=== PATIENT | female | born 1960 | race Caucasian/White ===

== ENCOUNTER 2025-10-21 10:00 | Outpatient (AMB) | payer MEDICARE, OTHER, SELFPAY ==
--- NOTE | 2025-10-21 10:31 | ORTHONT_ITS ---
Vital signs 10/21/25 10:38 10/21/25 10:46 Height 1.68 m 1.68 m Height Method Stated Stated Weight 73.17 kg 73.17 kg Weight Measurement Method Standing Scale Standing Scale BMI 26.0 25.9 BP 131/93 H 131/93 H Blood Pressure Source Automatic Cuff Automatic Cuff Blood Pressure Location Left Upper Arm Right Upper Arm Position Sitting Sitting Respiration 18 18 Pulse 67 67 Pulse Source Monitor Monitor Temp 97.3 F 97.3 F Temp Source Temporal Artery Scan Temporal Artery Scan Pulse Oximetry (%) 96 96 Oxygen Delivery Method Room Air Room Air Med/Allergies Allergies & Medications Allergies codeine Allergy (Severe, Verified 10/21/25 10:47) NAUSEA/VOMITING / HIVES hydromorphone Allergy (Severe, Verified 10/21/25 10:47) ANAPHYLAXIS morphine Allergy (Severe, Verified 10/21/25 10:47) Anaphylaxis Penicillins Allergy (Severe, Verified 10/21/25 10:47) Hives Medication Reconciliation diltiazem HCl 120 mg capsule,extended release 24 hr (Cartia XT) 1 cap PO BID 0 07/13/22 [History Confirmed 10/21/25] nitrofurantoin monohydrate/macrocrystals 100 mg capsule (Macrobid) 100 mg PO QDAY 09/19/23 [History Confirmed 10/21/25] vibegron 75 mg tablet (Gemtesa) 75 mg PO QDAY 09/19/23 [History Confirmed 10/21/25] Exam Exam Patient is in no acute distress and is cooperative with the examination today. Breathing is nonlabored. In no respiratory distress. Bilateral extremities were evaluated and demonstrates sensation intact to light touch. Patient has pitting edema bilaterally Bilateral hips were examined. The patient has no pain with log roll of the hips. Internal rotation to 30 degrees and external rotation to 30 degrees is painless. Negative FADIR. The left knee was examined. The left knee is in neutral alignment. Range of motion from 0-120 degrees. Knee is stable to varus and valgus as well as AP translation with <5mm. Patient has a negative McMurrays. There is no pain with patellofemoral compression and no crepitus noted. The knee is nontender to palpation diffusely. The right knee was also examined. The right knee is in neutral alignment. Range of motion from 0-120 degrees. Knee is stable to varus and valgus as well as AP translation with <5mm. Patient has a negative McMurrays. There is no pain with patellofemoral compression and no crepitus noted. The knee is nontender to palp ation diffusely. Assessment and Plan Problem List (1) Bilateral knee pain: Status: Acute Plan: Patient is a pleasant 65-year-old female with bilateral knee pain and bilateral knee swelling. She reports that the pain is not bothering her as much is feelings of instability. She would like to start therapy at some point in time. We will order x-rays to better evaluate her knees as she has no weightbearing x-rays. We discussed different treatment options depending what that shows. We discussed injections physical therapy and conservative treatment likely Advanced Care Planning Discussion Advance care planning discussed with:: patient Office Procedures GNS Level of Care Nursing/Assessment Patient Status: Established Patient Nursing Assessment/Reassesment: Medication Reconciliation, Update PMH in EMR and Vital Signs Coordination of Care: Complex Care and Chronic Disease 1-5, Education Complex Pt/Fam, Consent,records obtained, informed consent, 1 Ins Authorization, Lab and Imaging orders and Staff clarify orders Established Patient Charge Established Patient Point Assignment: 120 Established Patient Point Charge: EP Level 4 (120-155) MA Intake Visit Data Collection New Patient or Established: Established Patient (seen at [facility] within 3 years) Reason for Visit:: BILATERAL KNEE PAIN Seen by Clinical Staff ONLY (RN/MA): No Verbal consent obtained for Telemed visit?: No Financial Services Professional Required: No PCP or OBGYN visit in last 3 months: Yes Hx Now: No Do You Feel Safe at Home: Yes Authorities Contacted: N/A Questionairres Past Medical History Past Medical History Have you ever been diagnosed with any of the following: Neurological Problems Seizures: No Cardiology Problems Cardiac Arrhythmia: Yes Atrial Fibrillation: Yes Congestive Heart Failure: No Hypertension: Yes Respiratory Problems Chronic Obstructive Pulmonary Disease (COPD): Yes Asthma: Yes Bronchitis: Yes Sleep Apnea: No Stomache/Intestinal Problems Hepatitis: No Hiatal Hernia: Yes Gastroesophageal Reflux Disease: Yes Genital/Urinary Problems Renal Disease: No Reproductive Problems Previous Pregnancies: Yes Musculoskeletal Problems Arthritis: Yes Endocrine Problems Diabetes Mellitus Type 1: No Diabetes Mellitus Type 2: No Hypothyroidism: Yes (RESOLVED) Blood Problems Anemia: No Sickle Cell Disease: No Psychologic Problems Anxiety: Yes Other Problems Hospitalization: No Shingles: No Falls: No Blood Transfusions: No Anesthesia Reactions: No Chemotherapy: No Radiation Therapy: No MRSA: No VRSA: No Vancomycin-Resistant Enterococci: No Human Immunodeficiency Virus (HIV): No Chicken Pox: No Measles: Yes Mumps: Yes Rubella (Persian Measles): No Pertussis: No Clostridium Difficile: No Cancer: No Surgical History Hysterectomy: Yes Thyroidectomy: Yes Subjective Visit Visit for: new patient and knee Immunization / Flu Flu Vaccine in the Last 12 Months: No Flu Vaccine Exclusion Criteria: No Exclusion Criteria History of Present Illness Chief complaint: bilateral knee pain and leg swelling Patient is a pleasant 65-year-old female with bilateral knee pain and feelings of instability. In addition she reports that she has been having swelling in her legs bilaterally within the last 1 to 1-1/2 months. She does have a history of atrial fibrillation and does have medical issues. She is currently on a water pill to help optimize her for this. She reports that she has no pain but does not trust her knees when she walks Personal History Occupation: E Pain Pain level (0-10): 0 Associated signs & symptoms: weakness Review of Systems Review of Systems: All systems negative unless otherwise noted in HPI.
[2025-10-21 10:38] VITALS: BP 131/93; PULSE 67; RESP 18; TEMP 36.3; O2SAT 96; BMI 26.0
--- NOTE | 2025-10-21 10:44 | XR_ITS ---
EXAMINATION: Bilateral knees 2 views Right lateral knee left lateral knee 2 views Bilateral Axuni single view TECHNIQUE: Bilateral AP knees standing single view, bilateral PA and a standing single view flexion Standing right lateral knee left lateral knee 2 views Bilateral axial knee single view total 5 views Date and time: October 21, 2025, 1053 hours INDICATIONS: Knee pain years, surgery to the left knee 10 years ago, patient fell this morning with injury to both knees FINDINGS: Moderate osteopenia Moderate narrowing medial joint space right knee Mild narrowing patellofemoral joint No fracture No patellar dislocation Moderate narrowing medial joint space left knee Orthopedic pin traverses the distal femur No fracture Mild narrowing patellofemoral joint IMPRESSION: Moderate narrowing medial joint spaces
[2025-10-21 10:46] VITALS: BP 131/93; PULSE 67; RESP 18; TEMP 36.3; O2SAT 96; BMI 25.9
== END 2025-10-21 10:49 | disposition home or self-care (01) ==
LOC: HODSRG 10:00
PROVIDERS: PCP Family Medicine; Referring Provider Family Medicine; Supervising Provider Orthopaedic Surgery Adult Reconstructive Orthopaedic Surgery; Visit Provider Orthopaedic Surgery Adult Reconstructive Orthopaedic Surgery
DX: M25.562 Pain in left knee (principal); M25.561 Pain in right knee; M25.462 Effusion, left knee; M25.461 Effusion, right knee; M25.862 Other specified joint disorders, left knee; M25.861 Other specified joint disorders, right knee; I48.91 Unspecified atrial fibrillation
CPT/HCPCS: 73564; 99214; G0463

== ENCOUNTER → 2025-11-10 | Outpatient (CLI) | payer MEDICARE, OTHER, SELFPAY ==
--- NOTE | 2025-11-10 16:30 | XR_ITS ---
EXAMINATION: MRI brain with intravenous contrast TECHNIQUE: Axial sagittal coronal brain MRI images post intravenous administration 14 cc gadolinium INDICATIONS: Memory loss blurred vision 1 year FINDINGS: Ventricles are normal in size No mass effect upon the ventricular system No effacement cortical sulci No abnormal enhancing cerebellar or cerebral lesions Negative for enhancing acoustic neurinoma No pituitary macro or microadenoma No tonsillar cerebellar herniation or Arnold-Chiari malformation IMPRESSION: Negative examination
== END | disposition home or self-care (01) ==
PROVIDERS: PCP Family Medicine; Referring Provider Family Medicine; Visit Provider Family Medicine
DX: R41.3 Other amnesia (principal)
CPT/HCPCS: 70552; A9577

== ENCOUNTER 2025-11-19 08:25 | Outpatient (AMB) | payer MEDICARE, OTHER, SELFPAY ==
--- NOTE | 2025-11-19 08:29 | ORTHONT_ITS ---
Vital signs 11/19/25 08:35 Height 1.68 m Height Method Measured Weight 73.17 kg Weight Measurement Method Standing Scale BMI 25.9 BP 122/80 Blood Pressure Source Automatic Cuff Blood Pressure Location Left Upper Arm Position Sitting Respiration 18 Pulse 65 Pulse Source Monitor Temp 96.1 F L Temp Source Temporal Artery Scan Pulse Oximetry (%) 96 Oxygen Delivery Method Room Air Med/Allergies Allergies & Medications Allergies codeine Allergy (Severe, Verified 11/19/25 08:35) NAUSEA/VOMITING / HIVES hydromorphone Allergy (Severe, Verified 11/19/25 08:35) ANAPHYLAXIS morphine Allergy (Severe, Verified 11/19/25 08:35) Anaphylaxis Penicillins Allergy (Severe, Verified 11/19/25 08:35) Hives Medication Reconciliation diltiazem HCl 120 mg capsule,extended release 24 hr (Cartia XT) 1 cap PO BID 07/13/22 [History Confirmed 11/19/25] nitrofurantoin monohydrate/macrocrystals 100 mg capsule (Macrobid) 100 mg PO QDAY 09/19/23 [History Confirmed 11/19/25] vibegron 75 mg tablet (Gemtesa) 75 mg PO QDAY 09/19/23 [History Confirmed 11/19/25] Exam Exam Patient is in no acute distress and is cooperative with the examination today. Breathing is nonlabored. In no respiratory distress. Bilateral extremities were evaluated and demonstrates sensation intact to light touch. Patient has pitting edema bilaterally Bilateral hips were examined. The patient has no pain with log roll of the hips. Internal rotation to 30 degrees and external rotation to 30 degrees is painless. Negative FADIR. The left knee was examined. The left knee is in neutral alignment. Range of motion from 0-120 degrees. Knee is stable to varus and valgus as well as AP translation with <5mm. Patient has a negative McMurrays. There is no pain with patellofemoral compression and no crepitus noted. The knee is nontender to palpation diffusely. The right knee was also examined. The right knee is in neutral alignment. Range of motion from 0-120 degrees. Knee is stable to varus and valgus as well as AP translation with <5mm. Patient has a negative McMurrays. There is no pain with patellofemoral compression and no crepitus noted. The knee is nontender to palpation diffusely. X-rays demonstrate mild to moderate arthritis of both knees Assessment and Plan Problem List (1) Bilateral knee pain: Status: Acute Plan: Patient is a pleasant 65-year-old female with bilateral knee pain and bilateral knee swelling. She reports that the pain is not bothering her as much is feelings of instability. She has mild arthritis. We discussed conservative treatment and we will start with physical therapy. We can do an injection or anti-inflammatories if she has increased pain Advanced Care Planning Discussion Advance care planning discussed with:: patient Office Procedures GNS Level of Care Nursing/Assessment Patient Status: Established Patient Nursing Assessment/Reassesment: Medication Reconciliation, Update PMH in EMR and Vital Signs Coordination of Care: Complex Care and Chronic Disease 1-5, Education Complex Pt/Fam, Consent,records obtained, informed consent, Results/Orders obtained and Staff clarify orders Special Needs: Language special needs Established Patient Charge Established Patient Point Assignment: 95 Established Patient Point Charge: Level 3 (80-115) MA Intake Visit Data Collection New Patient or Established: Established Patient (seen at [facility] within 3 years) Reason for Visit:: F/U XRAYS Seen by Clinical Staff ONLY (RN/MA): No Verbal consent obtained for Telemed visit?: No Construction Administrative Assistant Required: No PCP or OBGYN visit in last 3 months: Yes Hx Now: No Do You Feel Safe at Home: Yes Authorities Contacted: N/A Questionairres Past Medical History Past Medical History Have you ever been diagnosed with any of the following: Neurological Problems Seizures: No Cardiology Problems Cardiac Arrhythmia: Yes Atrial Fibrillation: Yes Congestive Heart Failure: No Hypertension: Yes Respiratory Problems Chronic Obstructive Pulmonary Disease (COPD): Yes Asthma: Yes Bronchitis: Yes Sleep Apnea: No Stomache/Intestinal Problems Hepatitis: No Hiatal Hernia: Yes Gastroesophageal Reflux Disease: Yes Genital/Urinary Problems Renal Disease: No Reproductive Problems Previous Pregnancies: Yes Musculoskeletal Problems Arthritis: Yes Endocrine Problems Diabetes Mellitus Type 1: No Diabetes Mellitus Type 2: No Hypothyroidism: Yes (RESOLVED) Blood Problems Anemia: No Sickle Cell Disease: No Psychologic Problems Anxiety: Yes Other Problems Hospitalization: No Shingles: No Falls: No Blood Transfusions: No Anesthesia Reactions: No Chemotherapy: No Radiation Therapy: No MRSA: No VRSA: No Vancomycin-Resistant Enterococci: No Human Immunodeficiency Virus (HIV): No Chicken Pox: No Measles: Yes Mumps: Yes Rubella (Scottish Measles): No Pertussis: No Clostridium Difficile: No Cancer: No Surgical History Hysterectomy: Yes Thyroidectomy: Yes Subjective Visit Visit for: follow up visit and knee Immunization / Flu Flu Vaccine in the Last 12 Months: No Flu Vaccine Exclusion Criteria: No Exclusion Criteria History of Present Illness Chief complaint: F/U XRAYS Patient is a pleasant 65-year-old female with bilateral knee pain and feelings of instability. In addition she reports that she has been having swelling in her legs bilaterally within the last 1 to 1-1/2 months. She does have a history of atrial fibrillation and does have medical issues. She is currently on a water pill to help optimize her for this. She reports that she has no pain but does not trust her knees when she walks Personal History Occupation: RETIRED Red flag PMH: none BMI Counceling provided: No Pain Pain level (0-10): 0 Associated signs & symptoms: weakness Ambulatory data Ambulatory device: none Treatments Improvement with previous injections: No Improvement with PT: No Improvement with NSAIDS: no Review of Systems Review of Systems: All systems negative unless otherwise noted in HPI.
[2025-11-19 08:35] VITALS: BP 122/80; PULSE 65; RESP 18; TEMP 35.6; O2SAT 96; BMI 25.9
== END 2025-11-19 08:45 | disposition home or self-care (01) ==
LOC: HODSRG 08:25
PROVIDERS: PCP Family Medicine; Referring Provider Family Medicine; Supervising Provider Orthopaedic Surgery Adult Reconstructive Orthopaedic Surgery; Visit Provider Orthopaedic Surgery Adult Reconstructive Orthopaedic Surgery
DX: M17.0 Bilateral primary osteoarthritis of knee (principal)
CPT/HCPCS: 99213; G0463